=== PATIENT | male | born 1955 | race Caucasian/White ===

== ENCOUNTER 2019-07-29 10:03 | Emergency (ER) | payer OTHER ==
[~2019-07-29] VITALS: Ht 177.8 cm; Wt 56.7 kg
[2019-07-29 10:51] LABS: HEMATOCRIT 27.9 % (42.0-52.0); HEMOGLOBIN 8.4 gm/dL (14.0-18.0); MCH 27.4 pg (26.0-34.0); MCHC 30.1 g/dL (28.0-37.0); MCV 90.9 fL (80.0-100.0); PLATELET COUNT 273 thou/uL (150-400); RBC 3.07 mil/uL (4.50-6.00); RDW 18.7 % (10.5-14.5); WBC 33.8 thou/uL (4.0-11.0)
[2019-07-29 11:14] LABS: ALBUMIN 1.8 g/dL (3.4-5.0); CALCIUM 8.8 mg/dL (8.5-10.1); CREATININE 1.1 mg/dL (0.7-1.3); DIRECT BILIRUBIN 0.8 mg/dL (<0.1-0.2); POTASSIUM 4.6 mmol/L (3.5-5.1); TOTAL BILIRUBIN 1.1 mg/dL (<0.1-1.0); TOTAL PROTEIN 5.8 g/dL (6.4-8.2)
[2019-07-29 11:15] LABS: ABSOLUTE NEUTROPHILS 30.4 thou/uL (1.4-8.2); ANISOCYTOSIS 1+; METAMYELOCYTES 4 %; PLATELET ESTIMATE NORMAL
[2019-07-29 11:54] LABS: URINE BILIRUBIN NEGATIVE (Negative); URINE BLOOD TRACE (Negative); URINE CLARITY CLEAR; URINE COLOR YELLOW; URINE GLUCOSE-RANDOM* TRACE (Negative); URINE KETONES NEGATIVE (Negative); URINE LEUKOCYTES-REFLEX TRACE (Negative); URINE NITRITE-REFLEX NEGATIVE (Negative); URINE PROTEIN (DIPSTICK) NEGATIVE (Negative); URINE UROBILINOGEN 0.2 E.U./dl (0.2-1.0)
[2019-07-29 16:26] VITALS: BP 0/0
--- NOTE | 2019-08-02 12:33 | EKG ---
[facility] [place] [address] ELECTROCARDIOGRAM REPORT Name: BERNARDO MCNULTY Room #: DEP 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[place] : 1955 Requested By: Franca Wylie Order Number: [id number] MD: Zachary Hamilton Measurements Intervals Burns Rate: 79 P: 104 VT: 219 QRS: 261 QRSD: 123 T: 122 QT: 460 QTc: 528 Interpretive Statements Sinus rhythm Nonspecific IVCD with LAD Anterior infarct, old No previous ECG available for comparison Electronically Signed On 07-31-2019 7:29:04 [employer] by Zachary Hamilton [email or web address] <ELECTRONICALLY SIGNED> By: Zachary Hamilton MD, FAC 07/31/19 0729 1108 [id number] Zachary Hamilton MD, [facility] /EPI
== END 2019-07-29 12:08 ==
LOC: ER 10:03
PROVIDERS: Emergency Medicine
DX: I46.9 Cardiac arrest, cause unspecified (principal); I82.90 Acute embolism and thrombosis of unspecified vein; E16.2 Hypoglycemia, unspecified; R41.82 Altered mental status, unspecified; J18.9 Pneumonia, unspecified organism; Z88.0 Allergy status to penicillin